=== PATIENT | female | born 1990 | race Two or more races ===

== ENCOUNTER → 2020-10-21 | Outpatient (CLI) | payer OTHER ==
[2020-10-23 09:55] LABS: Hepatitis B Surface Antibody Positive
[2020-10-23 12:16] LABS: Hepatitis B Surface Antigen Negative (Negative)
== END | disposition home or self-care (01) ==
LOC: LAB 12:32
PROVIDERS: ATTEND Nurse Practitioner
DX: Z77.21 Contact with and (suspected) exposure to potentially hazardous body fluids (principal); W46.1XXA Contact with contaminated hypodermic needle, initial encounter; W46.0XXA Contact with hypodermic needle, initial encounter
CPT/HCPCS: 36415; 86703; 86706; 86803; 87340

== ENCOUNTER → 2021-03-11 | Outpatient (CLI) | payer MEDICAID ==
[2021-03-11 10:09] LABS: Basophils # (auto) 0 10 ^3/uL (0-0.2); Basophils % (auto) 0.4 % (0.0-2.0); Eosinophils # (auto) 0.1 10 ^3/uL (0-0.8); Eosinophils % (auto) 1.1 % (0.0-7.0); Hematocrit 36.5 % (36.0-46.0); Hemoglobin 12.6 g/dL (12.2-16.2); Lymphocytes # (auto) 1.7 10 ^3/uL (0.4-5.4); Lymphocytes % (auto) 15.6 % (10.0-50.0); Mean Corpuscular Hemoglobin 28.6 pg (28.0-32.0); Mean Corpuscular Hgb Conc. 34.7 g/dL (32.0-36.0); Mean Corpuscular Volume 82.5 fL (80.0-100.0); Monocytes # (auto) 0.5 10 ^3/uL (0-1.3); Monocytes % (auto) 4.7 % (0.0-12.0); Neutrophils # (auto) 8.5 10 ^3/uL (1.6-8.6); Neutrophils % (auto) 78.2 % (37.0-80.0); Platelet Count (auto) 235 10^3/uL (140-450); Red Blood Cells 4.42 10^6/uL (4.0-5.20); Red Cell Distribution Width 13.8 % (11.8-14.3); White Blood Cell 10.8 10^3/uL (4.4-10.8)
[2021-03-11 11:18] LABS: Alcohol, Urine < 3.0 mg/dL (0-10); Amphetamine Screen, Urine NEGATIVE (NEGATIVE); Barbiturate Scree,Urine NEGATIVE (NEGATIVE); Benzodiazephine Screen, Urine NEGATIVE (NEGATIVE); Cannabinoid Screen, Urine NEGATIVE (NEGATIVE); Cocaine Screen, Urine NEGATIVE (NEGATIVE); Opiate Scree,Urine NEGATIVE (NEGATIVE); Phencyclidine Screen, Urine NEGATIVE (NEGATIVE)
== END | disposition home or self-care (01) ==
LOC: LAB 09:33
PROVIDERS: ATTEND Obstetrics & Gynecology
DX: Z34.80 Encounter for supervision of other normal pregnancy, unspecified trimester (principal); Z31.430 Encounter of female for testing for genetic disease carrier status for procreative management; N39.0 Urinary tract infection, site not specified; Z3A.00 Weeks of gestation of pregnancy not specified
CPT/HCPCS: 36415; 80307; 81220; 83036; 84112; 84144; 84702; 85025; 85049; 86592; 86703; 86765; 86850; 86900; 86901; 87086; 87340

== ENCOUNTER → 2021-04-15 | Outpatient (CLI) | payer MEDICAID | END | disposition home or self-care (01) | LOC: LAB 09:22 | PROVIDERS: ATTEND Obstetrics & Gynecology | DX: Z34.80 Encounter for supervision of other normal pregnancy, unspecified trimester (principal); Z31.430 Encounter of female for testing for genetic disease carrier status for procreative management; Z3A.00 Weeks of gestation of pregnancy not specified | CPT/HCPCS: 86703 ==

== ENCOUNTER 2021-08-11 11:10 | Observation (INO) | payer MEDICAID ==
[~2021-08-11] VITALS: Ht 165.1 cm; Wt 64.9 kg
[2021-08-11] MEDS ORDERED: LACTATED RINGER'S 1,000 ML IV ONE (11:45)
[2021-08-11 12:23] LABS: Basophils # (auto) 0 10 ^3/uL (0-0.2); Basophils % (auto) 0.2 % (0.0-2.0); Eosinophils # (auto) 0.2 10 ^3/uL (0-0.8); Eosinophils % (auto) 1.7 % (0.0-7.0); Hematocrit 31.9 % (36.0-46.0); Hemoglobin 10.3 g/dL (12.2-16.2); Lymphocytes # (auto) 1.7 10 ^3/uL (0.4-5.4); Lymphocytes % (auto) 15.5 % (10.0-50.0); Mean Corpuscular Hemoglobin 24.3 pg (28.0-32.0); Mean Corpuscular Hgb Conc. 32.2 g/dL (32.0-36.0); Mean Corpuscular Volume 75.3 fL (80.0-100.0); Monocytes # (auto) 0.6 10 ^3/uL (0-1.3); Monocytes % (auto) 5.4 % (0.0-12.0); Neutrophils # (auto) 8.4 10 ^3/uL (1.6-8.6); Neutrophils % (auto) 77.2 % (37.0-80.0); Red Blood Cells 4.24 10^6/uL (4.0-5.20); Red Cell Distribution Width 15.6 % (11.8-14.3); White Blood Cell 10.9 10^3/uL (4.4-10.8)
[2021-08-11 12:29] LABS: Albumin 2.6 g/dL (3.4-5.0); Calcium 8.2 mg/dL (8.5-10.1); Potassium 4.2 mmol/L (3.5-5.1)
[2021-08-11 12:34] LABS: BUN/Creatinine Ratio 16.7; Bilirubin, Total 0.3 mg/dL (0.2-1.0); Total Protein 6.5 g/dL (6.4-8.2)
[2021-08-11 13:36] LABS: Urine Bacteria NONE SEEN /hpf (None Seen); Urine Blood Negative /uL (Negative); Urine Mucus FEW (None Seen); Urine Specific Gravity 1.026 (1.001-1.035); Urine WBC 11 /hpf (0 - 5)
[2021-08-11 13:57] LABS: Alcohol, Urine < 3.0 mg/dL (0-10); Amphetamine Screen, Urine NEGATIVE (NEGATIVE); Barbiturate Scree,Urine NEGATIVE (NEGATIVE); Benzodiazephine Screen, Urine NEGATIVE (NEGATIVE); Cannabinoid Screen, Urine NEGATIVE (NEGATIVE); Cocaine Screen, Urine NEGATIVE (NEGATIVE); Opiate Scree,Urine NEGATIVE (NEGATIVE); Phencyclidine Screen, Urine NEGATIVE (NEGATIVE)
[2021-08-11] MEDS ORDERED: PREN27TA7 OR (15:23)
[2021-08-11] MEDS ORDERED: METO-281 PO (15:54)
[2021-08-11] MEDS ORDERED: NIF10C PO (15:56)
[2021-08-11] MEDS ORDERED: FAMO20TA10 PO (15:56)
== END 2021-08-11 16:12 | disposition home or self-care (01) ==
LOC: LDRP 11:10
PROVIDERS: ADMIT Obstetrics & Gynecology; ATTEND Obstetrics & Gynecology
DX: O21.2 Late vomiting of pregnancy (principal); Z20.822 Contact with and (suspected) exposure to COVID-19; O60.03 Preterm labor without delivery, third trimester; Z3A.33 33 weeks gestation of pregnancy
CPT/HCPCS: 36415; 59025; 76818; 80053; 80307; 81001; 81002; 82150; 83690; 85025; 86592; 87426; 96360; G0378; 96365; 96366

== ENCOUNTER 2021-08-19 07:29 | Observation (INO) | payer MEDICAID ==
[~2021-08-19 07:29] MED LIST: FAMO20TA10 PO; METO-281 PO; NIF10C PO; PREN27TA7 OR
== END 2021-08-19 11:14 | disposition home or self-care (01) ==
LOC: LDRP 09:40
PROVIDERS: ADMIT Obstetrics & Gynecology; ATTEND Obstetrics & Gynecology
DX: O26.893 Other specified pregnancy related conditions, third trimester (principal); R11.0 Nausea; Z36.1 Encounter for antenatal screening for raised alphafetoprotein level; Z3A.33 33 weeks gestation of pregnancy
CPT/HCPCS: 59025; 76818; 81002; 94760; G0378

== ENCOUNTER 2021-08-25 09:45 | Observation (INO) | payer MEDICAID ==
[~2021-08-25 09:45] MED LIST changes: -FERR-20 PO
[2021-08-25] MEDS ORDERED: FERR-20 PO (10:46)
== END 2021-08-25 11:15 | disposition home or self-care (01) ==
LOC: LDRP 09:45
PROVIDERS: ADMIT Obstetrics & Gynecology; ATTEND Obstetrics & Gynecology
DX: O42.913 Preterm premature rupture of membranes, unspecified as to length of time between rupture and onset of labor, third trimester (principal); Z3A.35 35 weeks gestation of pregnancy
CPT/HCPCS: 59025; 76818; 81002; 94760; G0378

== ENCOUNTER → 2021-08-25 | Outpatient (CLI) | payer MEDICAID ==
[~2021-08-25] MED LIST changes: +FERR-20 PO
[2021-08-25 09:41] LABS: Basophils # (auto) 0 10 ^3/uL (0-0.2); Eosinophils # (auto) 0.1 10 ^3/uL (0-0.8); Hemoglobin 9.6 g/dL (12.2-16.2); Lymphocytes # (auto) 1.3 10 ^3/uL (0.4-5.4); Mean Corpuscular Hemoglobin 23.2 pg (28.0-32.0)
[2021-08-25 09:43] LABS: Basophils % (auto) 0.3 % (0.0-2.0); Eosinophils % (auto) 1.2 % (0.0-7.0); Hematocrit 30.4 % (36.0-46.0); Lymphocytes % (auto) 11.2 % (10.0-50.0); Mean Corpuscular Hgb Conc. 31.5 g/dL (32.0-36.0); Mean Corpuscular Volume 73.6 fL (80.0-100.0); Monocytes # (auto) 1.1 10 ^3/uL (0-1.3); Monocytes % (auto) 9.3 % (0.0-12.0); Neutrophils # (auto) 9.2 10 ^3/uL (1.6-8.6); Red Blood Cells 4.13 10^6/uL (4.0-5.20); Red Cell Distribution Width 15.7 % (11.8-14.3); White Blood Cell 11.7 10^3/uL (4.4-10.8)
== END | disposition home or self-care (01) ==
LOC: LAB 09:24
PROVIDERS: ATTEND Obstetrics & Gynecology
DX: Z11.3 Encounter for screening for infections with a predominantly sexual mode of transmission (principal); R89.9 Unspecified abnormal finding in specimens from other organs, systems and tissues
CPT/HCPCS: 36415; 84112; 85025; 86592

== ENCOUNTER 2021-09-01 09:50 | Observation (INO) | payer MEDICAID ==
[~2021-09-01 09:50] MED LIST changes: +FERR-20 PO
== END 2021-09-01 10:51 | disposition home or self-care (01) ==
LOC: LDRP 09:50
PROVIDERS: ADMIT Obstetrics & Gynecology; ATTEND Obstetrics & Gynecology
DX: Z36.1 Encounter for antenatal screening for raised alphafetoprotein level (principal); Z3A.36 36 weeks gestation of pregnancy
CPT/HCPCS: 59025; 76818; 81002; 94760; G0378; G0379

== ENCOUNTER 2021-09-08 08:36 | Observation (INO) | payer MEDICAID | END 2021-09-08 10:53 | disposition home or self-care (01) | LOC: LDRP 09:45 | PROVIDERS: ADMIT Obstetrics & Gynecology; ATTEND Obstetrics & Gynecology | DX: O28.1 Abnormal biochemical finding on antenatal screening of mother (principal); Z3A.37 37 weeks gestation of pregnancy | CPT/HCPCS: 59025; 76818; 81002; G0378 ==

== ENCOUNTER 2021-09-15 08:42 | Observation (INO) | payer MEDICAID | END 2021-09-15 12:15 | disposition home or self-care (01) | LOC: LDRP 09:16 | PROVIDERS: ADMIT Obstetrics & Gynecology; ATTEND Obstetrics & Gynecology | DX: O28.1 Abnormal biochemical finding on antenatal screening of mother (principal); Z20.822 Contact with and (suspected) exposure to COVID-19; O34.219 Maternal care for unspecified type scar from previous cesarean delivery; Z3A.39 39 weeks gestation of pregnancy | CPT/HCPCS: 59025; 76818; 81002; G0378; U0003 ==

== ENCOUNTER 2021-09-18 03:56 | Inpatient (IN) | payer MEDICAID ==
[~2021-09-18] VITALS: Ht 165.1 cm; Wt 70.8 kg
[2021-09-18] VITALS (17 sets, daily range): BP systolic 98–140; BP diastolic 42–86
[2021-09-18] MEDS ORDERED: LACTATED RINGER'S 1,000 ML IV ONE (04:30)
[2021-09-18] MEDS: LACTATED RINGER'S 1,000 ML IV SCH ×3 (04:54→20:58)
[2021-09-18 04:59] LABS: Basophils # (auto) 0 10 ^3/uL (0-0.2); Eosinophils # (auto) 0.1 10 ^3/uL (0-0.8); Mean Corpuscular Hgb Conc. 32.3 g/dL (32.0-36.0); Neutrophils # (auto) 5.3 10 ^3/uL (1.6-8.6)
[2021-09-18 05:01] LABS: Basophils % (auto) 0.4 % (0.0-2.0); Eosinophils % (auto) 1.5 % (0.0-7.0); Lymphocytes # (auto) 2.2 10 ^3/uL (0.4-5.4); Lymphocytes % (auto) 27.5 % (10.0-50.0); Mean Corpuscular Hemoglobin 24.1 pg (28.0-32.0); Mean Corpuscular Volume 74.6 fL (80.0-100.0); Monocytes # (auto) 0.4 10 ^3/uL (0-1.3); Monocytes % (auto) 5.5 % (0.0-12.0); Neutrophils % (auto) 65.1 % (37.0-80.0); Nucleated Red Blood Cells % 0.1 %; Red Blood Cells 4.56 10^6/uL (4.0-5.20); Red Cell Distribution Width 18.1 % (11.8-14.3); White Blood Cell 8.1 10^3/uL (4.4-10.8)
[2021-09-18 05:07] LABS: INR 0.94 (0.9-1.15); Partial Thromboplastin Time 25.8 sec (23.6-33.0)
[2021-09-18 05:15] LABS: Albumin 2.5 g/dL (3.4-5.0); BUN/Creatinine Ratio 10.9; Calcium 8.9 mg/dL (8.5-10.1); Potassium 3.7 mmol/L (3.5-5.1)
[2021-09-18 05:19] LABS: Bilirubin, Total 0.3 mg/dL (0.2-1.0)
[2021-09-18] MEDS ORDERED: ceFAZolin 1GM/50ML 50 ML IV ONE (06:00)
[2021-09-18] MEDS ORDERED: TETRACAINE 1% INJ 2 ML VIAL IJ ONE (07:05)
[2021-09-18] MEDS ORDERED: ONDANSETRON HCL 4 MG/2 ML VIAL ONE (07:07)
[2021-09-18] MEDS ORDERED: MIDAZOLAM HCL 2MG/2ML 2ml VIAL (1mg/ml) ONE (07:07)
[2021-09-18] MEDS ORDERED: fentaNYL CITRATE 100 MCG/2 ML VL ONE (07:07)
[2021-09-18] MEDS ORDERED: SODIUM CHLORIDE LOCK 10 ML ONE (07:07)
[2021-09-18] MEDS ORDERED: oxyTOCIN 10 UNIT/ML 10ML VIAL ONE (07:07)
[2021-09-18] MEDS ORDERED: EPINEPHrine HCL 1 MG/1 ML AMP ONE (07:09)
[2021-09-18] MEDS ORDERED: BUPIVACAINE/DEXTROSE MPF 0.75% 2 ML AMP IT ONE (07:09)
[2021-09-18] MEDS ORDERED: MORPHINE SULF PF 2 MG/2 ML SYRG ONE (07:11)
[2021-09-18 07:56] LABS: Urine Bacteria NONE SEEN /hpf (None Seen); Urine Blood Negative /uL (Negative); Urine WBC <1 /hpf (0 - 5)
[2021-09-18 08:07] LABS: Amphetamine Screen, Urine NEGATIVE (NEGATIVE); Barbiturate Scree,Urine NEGATIVE (NEGATIVE); Cannabinoid Screen, Urine NEGATIVE (NEGATIVE)
[2021-09-18 08:10] LABS: Alcohol, Urine < 3.0 mg/dL (0-10); Benzodiazephine Screen, Urine NEGATIVE (NEGATIVE); Cocaine Screen, Urine NEGATIVE (NEGATIVE); Opiate Scree,Urine NEGATIVE (NEGATIVE); Phencyclidine Screen, Urine NEGATIVE (NEGATIVE)
[2021-09-18] MEDS ORDERED: ACETAMINOPHEN IV 100 ML IV ONE (08:20)
[2021-09-18] MEDS ORDERED: ONDANSETRON HCL 4 MG/2 ML VIAL IV PRN (08:30)
[2021-09-18] MEDS ORDERED: LACT. RINGERS/OXYTOCIN 20UNITS 1,000 ML IV ONE (08:30)
[2021-09-18] MEDS ORDERED: ceFAZolin 1GM/50ML 50 ML IV SCH (08:30)
[2021-09-18] MEDS ORDERED: ACETAMINOPHEN IV 1000 MG/100ML (10MG/ML) IV ONE (08:45)
[2021-09-18] MEDS ORDERED: GUM (CHEWING) 1 GUM CHEW CHEW ONE (10:30)
[2021-09-18] MEDS ORDERED: ACETAMINOPHEN IV 1000 MG/100ML (10MG/ML) IV PRN (15:00)
[2021-09-18] MEDS: ceFAZolin 1GM/50ML 50 ML IV SCH ×2 (15:04→23:03)
[2021-09-18] MEDS ORDERED: diphenhdrAMINE HCL 50 MG/1 ML VL IV ONE ×2 (21:20→21:41)
[2021-09-18 21:44] LABS: Basophils # (auto) 0 10 ^3/uL (0-0.2); Eosinophils # (auto) 0 10 ^3/uL (0-0.8); Hemoglobin 9.5 g/dL (12.2-16.2); Mean Corpuscular Volume 74.2 fL (80.0-100.0); Monocytes # (auto) 0.6 10 ^3/uL (0-1.3); Neutrophils % (auto) 88.4 % (37.0-80.0)
[2021-09-18 21:45] LABS: Basophils % (auto) 0.1 % (0.0-2.0); Hematocrit 28.8 % (36.0-46.0); Lymphocytes % (auto) 7.2 % (10.0-50.0); Mean Corpuscular Hemoglobin 24.6 pg (28.0-32.0); Mean Corpuscular Hgb Conc. 33.1 g/dL (32.0-36.0); Monocytes % (auto) 4.3 % (0.0-12.0); Neutrophils # (auto) 12.5 10 ^3/uL (1.6-8.6); Red Blood Cells 3.88 10^6/uL (4.0-5.20); Red Cell Distribution Width 18.7 % (11.8-14.3); White Blood Cell 14.1 10^3/uL (4.4-10.8)
[2021-09-18] MEDS: KETOROLAC TROMETH 30 MG/ML 1ML VIAL IV PRN (23:03)
[2021-09-19] VITALS (11 sets, daily range): BP systolic 92–106; BP diastolic 48–71
[2021-09-19] MEDS: KETOROLAC TROMETH 30 MG/ML 1ML VIAL IV PRN ×2 (04:47→12:35)
[2021-09-19] MEDS: LACTATED RINGER'S 1,000 ML IV SCH ×3 (07:30→20:24)
[2021-09-19] MEDS: ceFAZolin 1GM/50ML 50 ML IV SCH (07:47)
[2021-09-19 08:40] LABS: Basophils # (auto) 0.1 10 ^3/uL (0-0.2); Eosinophils # (auto) 0 10 ^3/uL (0-0.8); Hemoglobin 9.4 g/dL (12.2-16.2); Mean Corpuscular Hemoglobin 23.9 pg (28.0-32.0); Monocytes # (auto) 0.8 10 ^3/uL (0-1.3); Neutrophils # (auto) 8.7 10 ^3/uL (1.6-8.6); Neutrophils % (auto) 72.2 % (37.0-80.0); Nucleated Red Blood Cells % 0.1 %
[2021-09-19 08:42] LABS: Basophils % (auto) 0.8 % (0.0-2.0); Eosinophils % (auto) 0.3 % (0.0-7.0); Hematocrit 29.1 % (36.0-46.0); Lymphocytes # (auto) 2.4 10 ^3/uL (0.4-5.4); Mean Corpuscular Hgb Conc. 32.2 g/dL (32.0-36.0); Mean Corpuscular Volume 74.2 fL (80.0-100.0); Monocytes % (auto) 6.7 % (0.0-12.0); Red Blood Cells 3.92 10^6/uL (4.0-5.20); Red Cell Distribution Width 19.6 % (11.8-14.3); White Blood Cell 12.1 10^3/uL (4.4-10.8)
[2021-09-19] MEDS ORDERED: BISACODYL 10 MG RECT SUPP PR PRN (12:30)
[2021-09-19] MEDS ORDERED: HYDROcodone-ACET 5/325MG TAB PO PRN (12:30)
[2021-09-19] MEDS: SIMETHICONE 80 MG CHEWABLE TABLET PO SCH ×2 (19:01→22:43)
[2021-09-19] MEDS: IBUPROFEN 800 MG TAB PO PRN (19:02)
[2021-09-19] MEDS: DOCUSATE SOD 100 MG CAP PO SCH (22:43)
[2021-09-20] MEDS: HYDROcodone-ACET 5/325MG TAB PO PRN ×4 (00:35→22:57)
[2021-09-20 03:00] VITALS: BP 99/53
[2021-09-20] MEDS: IBUPROFEN 800 MG TAB PO PRN ×2 (03:40→12:00)
[2021-09-20] MEDS: SIMETHICONE 80 MG CHEWABLE TABLET PO SCH ×4 (05:48→22:34)
[2021-09-20 07:00] VITALS: BP 105/65
[2021-09-20] MEDS: DOCUSATE SOD 100 MG CAP PO SCH ×2 (07:45→22:34)
[2021-09-20] MEDS ORDERED: HYDR-4902 PO (08:35)
[2021-09-20] MEDS ORDERED: DOCU-94 PO (08:35)
[2021-09-20] MEDS ORDERED: IBUP800T27 PO (08:35)
[2021-09-20] MEDS ORDERED: DOCUSATE CALCIUM 240 MG CAP PO SCH (10:00)
[2021-09-20 11:00] VITALS: BP 103/61
[2021-09-20 15:00] VITALS: BP 93/68
[2021-09-20 19:00] VITALS: BP 93/68
[2021-09-20 22:44] VITALS: BP 99/67
[2021-09-21] MEDS: IBUPROFEN 800 MG TAB PO PRN (02:58)
[2021-09-21 02:59] VITALS: BP 98/59
[2021-09-21] MEDS: SIMETHICONE 80 MG CHEWABLE TABLET PO SCH (05:26)
[2021-09-21 07:00] VITALS: BP 95/64
[2021-09-21] MEDS: HYDROcodone-ACET 5/325MG TAB PO PRN (07:48)
[2021-09-21] MEDS ORDERED: PREN-96 PO (07:49)
== END 2021-09-21 09:05 | disposition home or self-care (01) | DRG 540 ==
LOC: LDRP 03:56
PROVIDERS: ADMIT Obstetrics & Gynecology; ATTEND Obstetrics & Gynecology
PROC: 10D00Z1 Extraction of Products of Conception, Low, Open Approach (ICD-10-PCS; principal; 2021-09-18 07:28)
DX: O75.82 Onset (spontaneous) of labor after 37 completed weeks of gestation but before 39 completed weeks gestation, with delivery by (planned) cesarean section (principal); R71.0 Precipitous drop in hematocrit; Z37.0 Single live birth; Z3A.39 39 weeks gestation of pregnancy; Z3A.00 Weeks of gestation of pregnancy not specified
CPT/HCPCS: 36415; 59025; 80053; 80307; 81001; 81002; 85025; 85610; 85730; 86592; 86850; 86900; 86901; 94760; 94762; 96360; 96361; 96365; 96366; 96374; 96375; G0378; J0131; J0171; J0690; J1885; J2250; J2405; J2590

== ENCOUNTER 2021-11-22 13:20 | Emergency (ER) | payer MEDICAID ==
[~2021-11-22] VITALS: Ht 165.1 cm; Wt 62.6 kg
[~2021-11-22 13:20] MED LIST changes: +DOCU-94 PO; +HYDR-4902 PO; +IBUP800T27 PO; +PREN-96 PO
[2021-11-22] MEDS ORDERED: ONDANSETRON ODT 4 MG TAB PO ONE (14:00)
[2021-11-22 14:19] LABS: Urine Bacteria FEW /hpf (None Seen); Urine Blood 2+ /uL (Negative); Urine Mucus FEW (None Seen); Urine Specific Gravity 1.028 (1.001-1.035); Urine WBC 12 /hpf (0 - 5)
[2021-11-22] MEDS ORDERED: ACETAMINOPHEN 325 MG TAB PO ONE (15:30)
[2021-11-22] MEDS ORDERED: ONDA-144 PO (15:39)
[2021-11-22] MEDS ORDERED: NITR-87 PO (15:39)
[2021-11-22 16:25] VITALS: BP 100/53
== END 2021-11-22 17:00 | disposition home or self-care (01) ==
LOC: ER 13:20
DX: N39.0 Urinary tract infection, site not specified (principal); R50.9 Fever, unspecified; R11.2 Nausea with vomiting, unspecified; Z79.1 Long term (current) use of non-steroidal anti-inflammatories (NSAID); Z79.899 Other long term (current) drug therapy
CPT/HCPCS: 81001; 99283; Q0162